=== PATIENT | male | born 1975 | race Native Hawaiian/Other Pacific Islander ===

== ENCOUNTER 2016-11-28 14:38 | Emergency (ER) | payer SELFPAY ==
[2016-11-28 14:55] VITALS: TEMP 97
[2016-11-28] MEDS ORDERED: predniSONE 20 MG TAB PO ONE (15:00)
[2016-11-28] MEDS ORDERED: KETOROLAC TROMETHAMINE INJ 30 MG/ML VIAL IM ONE (15:00)
[2016-11-28] MEDS ORDERED: CYCLOBENZAPRINE HCL 10 MG TAB PO ONE (15:00)
--- NOTE | 2016-11-28 15:40 | RAD ---
PROCEDURE: Lumbar Spine 5 Views Clinical History: pain l3-l5 after fall this am. Indication: Same as above Comparison: None . Technique: 5.0 views of the lumbar spine were done. Findings: There is no loss of vertebral body height. There is no evidence of spondylolisthesis or spondylolyses in the lumbosacral spine. There is a transitional L5 vertebra The intervertebral disc spaces are well-maintained. Vascular wall calcifications are seen in the iliac vasculature. Surgical sutures are seen in the right pelvic region There is no significant scoliotic curvature of the lumbar spine. The bone mineralization is normal for patient's age. The thoracolumbar and the lumbosacral junction are intact. The visualized portions of the bilateral sacroiliac joints are unremarkable. The paravertebral soft tissues are radiographically unremarkable. The posterior elements are normal. Impression: Negative for acute bony trauma involving the lumbar spine Location of Interpretation: Teleradiology Electronically signed by: Cal Galeas MD 11/28/2016 3:38 PM CDT Workstation: [id number]
--- NOTE | 2016-11-28 15:49 | ED.PDOC ---
History of Present Illness - General Chief Complaint: Back Pain or Injury Stated Complaint: lumbar back pain Time Seen by Provider: 11/28/16 14:41 Source: patient Exam Limitations: no limitations - History of Present Illness Initial Comments: the patient is a 41-year-old male presenting to the emergency room in police custody. Apparently the patient fell backwards and landed on his lower back on his porch this morning. He hurt his back and was speaking to the hospital when he got stopped by the police. The patient is in police custody. He is reporting early paraspinal pain from L2-L5 bilaterally. No radiculopathy or paresthesias. No sciatica. There is some muscle spasm present. No gross deformity. No laceration or abrasion. No bruising. Timing/Duration: 4-6 hours Severity: moderate Improving Factors: nothing Worsening Factors: movement Associated Symptoms: denies symptoms Allergies/Adverse Reactions: Allergies NO KNOWN ALLERGY Allergy (Verified 11/28/16 14:55) Home Medications: Ambulatory Orders Acetaminophen W/ Codeine [Tylenol W/ CODEINE #3] 1 ea PO Q4H PRN #12 08/01/15 Ibuprofen [Motrin Tab] 600 mg PO Q8H PRN #15 tab 08/01/15 Cyclobenzaprine HCl [Flexeril] 5 mg PO TID PRN #30 tab 11/28/16 predniSONE [Prednisone] 20 mg PO DAILY #5 tab 11/28/16 Review of Systems - Review of Systems Constitutional: States: no symptoms reported EENTM: States: no symptoms reported Respiratory: States: no symptoms reported Cardiology: States: no symptoms reported Gastrointestinal/Abdominal: States: no symptoms reported Genitourinary: States: no symptoms reported Musculoskeletal: States: back pain Skin: States: no symptoms reported Neurological: States: no symptoms reported Endocrine: States: no symptoms reported All other Systems: No Change from Baseline Past Medical History (General) - Patient Medical History Hx Stroke: No Hx Congestive Heart Failure: No Hx Diabetes: No Hx Cancer: No Hx Hepatitis C: No Hx MRSA: No Surgical History: other - Vaccination History Hx Tetanus, Diphtheria Vaccination: Yes Hx Influenza Vaccination: Yes Hx Pneumococcal Vaccination: Yes - Social History Hx Tobacco Use: No Hx Alcohol Use: Yes - occasional Hx Substance Use: No - Female History Patient : No Family Medical History - Family History Mother Family History: No Known Living Status: Still Living Physical Exam - Physical Exam General Appearance: Alert, Comfortable Eye Exam: bilateral normal Ears, Nose, Throat: hearing grossly normal, normal ENT inspection, normal pharynx Neck: full range of motion, supple, normal inspection Respiratory: chest non-tender, lungs clear, normal breath sounds, no respiratory distress, no accessory muscle use Cardiovascular/Chest: normal peripheral pulses, regular rate, rhythm, no edema Peripheral Pulses: radial,right: 2+, radial,left: 2+, dorsalis pedis,right: 2+, dorsalis pedis,left: 2+ Gastrointestinal/Abdominal: non tender, soft Rectal Exam: deferred Back Exam: no vertebral tenderness, CVA tenderness (R), CVA tenderness (L) Extremity: normal range of motion, non-tender, normal inspection, no pedal edema , normal capillary refill Neurologic: alert, normal mood/affect, oriented x 3 Skin Exam: normal color Comments: Vital Signs - 24 hr 11/28/16 14:38 Temperature 97 F L Pulse Rate [ 56 L pulse ox] Respiratory 20 Rate Blood Pressure 146/94 [Left Arm] O2 Sat by Pulse 94 L Oximetry Progress - Progress Progress: 11/28/16 15:49 the patient is a 41-year-old male presenting with low back pain from a fall this morning. The patient was given a dose of Toradol as well as dose of a muscle relaxer and prednisone. He will be written prescriptions for prednisone and muscle relaxer for as needed use. He does need to do some stretching exercises. A heat pad when available might prove of some use. X-rays of the lumbar spine show no evidence of any acute pathology. At this point in time the pain appears to be soft tissue only. ER warnings were given. He should follow-up with his primary care doctor next week. Departure - Departure Clinical Impression: Low back pain without sciatica Qualifiers: Chronicity: acute Back pain laterality: bilateral Qualified Code(s): M54.5 - Low back pain Disposition: Discharge to Home or Self Care Condition: Fair Departure Forms: ED Discharge - Pt. Copy, Patient Portal Self Enrollment Instructions: DI for Low Back Pain Diet: regular diet Activity: increase activity as tolerated Prescriptions: Cyclobenzaprine HCl [Flexeril] 5 mg PO TID PRN #30 tab PRN Reason: Muscle Spasms predniSONE [Prednisone] 20 mg PO DAILY #5 tab Home Medications: Ambulatory Orders Acetaminophen W/ Codeine [Tylenol W/ CODEINE #3] 1 ea PO Q4H PRN #12 08/01/15 Ibuprofen [Motrin Tab] 600 mg PO Q8H PRN #15 tab 08/01/15 Cyclobenzaprine HCl [Flexeril] 5 mg PO TID PRN #30 tab 11/28/16 predniSONE [Prednisone] 20 mg PO DAILY #5 tab 11/28/16 Additional Instructions: the patient is a 41-year-old male presenting with low back pain from a fall this morning. The patient was given a dose of Toradol as well as dose of a muscle relaxer and prednisone. He will be written prescriptions for prednisone and muscle relaxer for as needed use. He does need to do some stretching exercises. A heat pad when available might prove of some use. X-rays of the lumbar spine show no evidence of any acute pathology. At this point in time the pain appears to be soft tissue only. ER warnings were given. He should follow-up with his primary care doctor next week.
[2016-11-28 16:05] VITALS: BP 134/92; O2SAT 99
== END 2016-11-28 16:00 | disposition home or self-care (01) ==
LOC: ER 14:38
DX: M54.5 Low back pain (principal)
CPT/HCPCS: 72114; J1885; J7512

== ENCOUNTER 2018-11-10 05:30 | Day surgery (SDC) | payer BC ==
[2018-11-10] MEDS ORDERED: DEXAMETHASONE INJ 10 MG/ML VIAL ONE (07:00)
[2018-11-10] MEDS ORDERED: SODIUM CHLORIDE 0.9% 50 ML VIAL ONE (07:00)
[2018-11-10] MEDS ORDERED: PROPOFOL 200 MG/20 ML VIAL IV ONE (07:00)
[2018-11-10] MEDS ORDERED: LIDOCAINE 1% 10 ML VIAL INJ ONE (07:00)
[2018-11-10] MEDS ORDERED: GLYCOPYRROLATE 0.2 MG/ML VIAL ONE (07:00)
[2018-11-10] MEDS ORDERED: raNITIdine HCL INJ 25 MG/ML VIAL ONE (07:00)
[2018-11-10] MEDS ORDERED: ePHEDrine SULF 50 MG/ML ONE (07:00)
[2018-11-10] MEDS ORDERED: METOCLOPRAMIDE HCL INJ 10 MG/2 ML VIAL ONE (07:00)
[2018-11-10] MEDS ORDERED: KETOROLAC TROMETHAMINE INJ 30 MG/ML VIAL ONE (07:00)
[2018-11-10] MEDS ORDERED: SODIUM CHL 0.9% 100ML MINI-BAG 100 ML IVPB ONE (09:19)
[2018-11-10] MEDS ORDERED: ceFAZolin SODIUM 1 GM VIAL ONE (09:20)
[2018-11-10] MEDS: LACTATED RINGERS 1,000 ML ONE ×2 (09:40→12:52)
[2018-11-10] MEDS ORDERED: BUPIVACAINE 0.5% W/EPI 30 ML VIAL INJ ONE (10:41)
[2018-11-10] MEDS ORDERED: MIDAZOLAM INJ 2 MG/2 ML VIAL ONE ×2 (10:56→11:06)
[2018-11-10] MEDS ORDERED: KETAMINE HCL 50 MG/ML SYG IV ONE (10:56)
[2018-11-10] MEDS ORDERED: HYDROmorphone HCL INJ 2 MG/ML VIAL ONE (10:56)
[2018-11-10] MEDS ORDERED: ROCURONIUM BROMIDE 10 MG/ML VIAL ONE (10:57)
[2018-11-10] MEDS: HYDROmorphone HCL INJ 2 MG/ML VIAL ONE ×7 (12:38→13:58)
[2018-11-10] MEDS ORDERED: SUGAMMADEX SODIUM 200 MG/2 ML VIAL IV ONE (12:43)
--- NOTE | 2018-11-10 13:49 | OP ---
DATE OF PROCEDURE: 11/10/18 PREOPERATIVE DIAGNOSIS: 1. Symptomatic cholelithiasis. 1. Left inguinal hernia. POSTOPERATIVE DIAGNOSIS: 1. Symptomatic cholelithiasis. 2. Left inguinal hernia. PROCEDURE: 1. Laparoscopic cholecystectomy with intraoperative cholangiogram. 2. Repair of incarcerated left inguinal hernia with removal of 5 cm retroperitoneal tumor, Edmond type repair. SURGEON: Jorje Jackson MD. ANESTHESIA: General and local. FINDINGS: The gallbladder showed at least 2 moderately large multi-faceted stones. The cholangiogram showed normal anatomy without filling defect. The left groin had a small indirect sac that was very thin walled as well as a moderately large cord lipoma through the internal ring. Note, there was a small peritoneal defect that could not be repaired. It had a small amount of peritoneal fat in it that we reduced and then performed an online Edmond repair to avoid intraabdominal exposed Prolene. COMPLICATIONS: None. ESTIMATED BLOOD LOSS: Minimal. SPECIMEN: Gallbladder and left inguinal retroperitoneal tumor. PLAN: Discharge. INDICATION: As stated. PROCEDURE: General anesthesia was induced. The patient was prepped and draped in sterile fashion. Marcaine 0.5% with epinephrine was used all incision sites. The patient had a previous midline laparotomy, so a small thierry was made and the Veress needle was introduced on the right side of the abdomen inferior to where he had had a laparoscopic right inguinal hernia, anticipating this would be scar-free. It was insufflated. The Vis-A-Port was used and, indeed, this area of the abdomen was free. There were some adhesions of both omentum and small bowel to the left of midline, but we were able to place a 5 mm superior the umbilicus. Subxiphoid and right lateral ports were placed under direct visualization without difficulty . The gallbladder fundus was grasped and retracted superiorly and laterally. The infundibulum was grasped. The infundibular structures were dissected free. The duct and artery were clearly visualized through the triangle of Calot. A clip was placed on the proximal duct and ductotomy performed. The cholangiocatheter was introduced. The cholangiogram revealed the above normal findings. The catheter was removed. Three clips were placed on the distal duct. The duct was ligated and the artery triply ligated as was a small posterior branch. It looked like a duct of Luschka. The gallbladder was then dissected off the fossa totally and removed in the EndoCatch bag. The fossa was examined. It remained hemostatic. The clips were intact. There was no bleeding or bile leak. The subxiphoid fascia was then closed with 0 Vicryl using the suture passer. It was airtight and non- bleeding. The remaining trocars were removed. There was no bleeding from the trocar sites. The wounds were irrigated and closed with Monocryl and dressing applied. We then went down to the left groin that had been marked. An ilioinguinal nerve block was performed based on anatomic landmarks. Marcaine 05.% with epinephrine 3 cc were injected. The incision was made to subcutaneous tissue and taken down. The external oblique aponeurosis was identified. A small thierry was made. It was opened along its fibers while undermining with Metzenbaum. The nerve was identified and dissected out and spared. The cord was then isolated and felt to be a rather bulky cord and we identified the moderate sized retroperitoneal tumor coming to the internal ring. It was high ligated with Vicryl suture and then dissected out the proximal cord and found a small, thin sac. Upon dissection and reduction of this sac in the preperitoneal plane, I noticed what appeared to be some mesenteric fat. Indeed, it turned out to be and I could not identify the edges of the small peritoneal defect in order to repair it. For this reason, I did not want use my normal preperitoneal placement of the PHS mesh. The defect itself was quite small, but I did use an interrupted 2-0 Vicryl to close this defect somewhat medially of the cord without stricturing. We then cut off the internal portion of the PHS mesh and used the external as well as the tunneler for a similar type repair, securing it to the tubercle, wrapped around the cord, non-stricturing and securing at multiple places along the shelving edge, also securing the elevator at the internal ring and then superiorly along the transverse and laid out laterally underneath the external oblique. It fit well. The external oblique was closed with a running 2-0 Vicryl with care not to incorporate the nerve. One nerve that was in the cord, separate from the ilioinguinal we had dissected out before was sacrificed and ligated distally. At that point, all lap and instruments were correct. There was no significant bleeding. More local was placed in the external oblique. The wound was then closed in 2 additional layers. Dressings were applied. He tolerated the procedure. The patient was awakened and taken to Recovery to be discharged. #[id number] MTDD
[2018-11-10] MEDS ORDERED: diphenhydrAMINE HCL 50 MG/ML VIAL ONE (14:04)
[2018-11-10 15:19] VITALS: BP 156/77; TEMP 97.7; O2SAT 100
--- NOTE | 2018-11-11 09:08 | RAD ---
PROVIDED CLINICAL HISTORY/REASON FOR EXAM: IOC Findings/impression: One intraoperative fluoroscopic cholangiogram image. Dose: Not documented Time: Labeled as less than one hour Electronically signed by: Amrik Pandya MD 11/11/2018 9:06 AM CDT
== END 2018-11-10 15:15 | disposition home or self-care (01) ==
LOC: AMB 05:30
PROVIDERS: ATTEND Surgery
DX: K80.10 Calculus of gallbladder with chronic cholecystitis without obstruction (principal); K82.8 Other specified diseases of gallbladder; D17.6 Benign lipomatous neoplasm of spermatic cord; K40.31 Unilateral inguinal hernia, with obstruction, without gangrene, recurrent; Z90.49 Acquired absence of other specified parts of digestive tract; Z79.899 Other long term (current) drug therapy
CPT/HCPCS: 00790; 47563; 49521; 76000; A4216; J0690; J1100; J1170; J1200; J1885; J2250; J2765; J2780; J3490; J7050; J7120

== ENCOUNTER 2018-12-13 12:25 | Emergency (ER) | payer BC ==
[2018-12-13] MEDS ORDERED: ONDANSETRON ODT 8 MG TAB SL ONE (12:53)
[2018-12-13] MEDS ORDERED: SODIUM CHLORIDE 0.9% 1000ML 1,000 ML IVS ONE (12:53)
[2018-12-13] MEDS ORDERED: KCL 40 MEQ/WATER FOR INJ 100ML 40 MEQ in PREMIX BAG 1 BAG IVPB ONE (13:28)
[2018-12-13] MEDS ORDERED: KCL 40 MEQ/WATER FOR INJ 100ML 100 ML IVPB ONE (13:48)
[2018-12-13 13:59] VITALS: TEMP 97.8
--- NOTE | 2018-12-13 14:12 | RAD ---
EXAM DESCRIPTION: Abdomen Series CLINICAL HISTORY: 43 years Male, suspected bowel partial bowel obs 1 mo post op COMPARISON: None. FINDINGS: The cardiomediastinal silhouette is unremarkable. No airspace consolidation or pleural effusion. No free subdiaphragmatic gas or intra-abdominal air-fluid level. Cholecystectomy clips. Small amount of colonic stool and gas, no dilated small bowel loops. A suture line is present in the right side of the pelvis. No suspicious intra-abdominal calcification or mass, no concerning bone lesion. IMPRESSION: Postoperative changes without obstruction or other acute intra-abdominal abnormality. Electronically signed by: Marek Barlow MD 12/13/2018 2:11 PM CDT
--- NOTE | 2018-12-13 14:53 | CT ---
EXAM DESCRIPTION: Abdoment/Pelvis w/o Contrast CLINICAL HISTORY: abd distension, pain, nvd, 1mo post op hernia COMPARISON: May 01, 2013 TECHNIQUE: Noncontrast transaxial CT images of the abdomen and pelvis are obtained. This exam was performed according to our departmental dose-optimization program, which includes automated exposure control, adjustment of the mA and/or kV according to patient size and/or use of iterative reconstruction technique . FINDINGS: Visualized lung bases show no acute findings. Given the limitations of a noncontrast exam the liver, spleen, pancreas, and adrenal glands are unremarkable. Interval postsurgical changes from cholecystectomy mild fat stranding in the gallbladder fossa could represent scarring. No biliary tract obstruction. Abdominal vasculature is unremarkable. No nephrolithiasis. No ureteral calcification or obstruction. Urinary bladder is poorly distended but unremarkable. Moderate prostate calcifications. The appendix is not identified. Suture line associated with loop of small bowel in the right lower quadrant is stable from previous.. Stomach is poorly distended and unremarkable. No small bowel obstruction. Several small fat-containing ventral hernias are seen involving the mid abdominal wall above the umbilicus. Subcutaneous soft tissue fat stranding along the left inguinal region consistent with left inguinal hernia repair. No recurrent hernia. No pathologically enlarged abdominal or retroperitoneal lymphadenopathy. Mild groundglass attenuation in the mesentery of the central abdomen with less than 1 cm mesenteric lymph nodes similar to previous. Mild to moderate scattered diverticuli of the descending to sigmoid colon. Osseous structures show no aggressive bony lesions. Moderate bony hypertrophy and partial fusion of the superior right sacroiliac joint. IMPRESSION: Interval postsurgical changes from cholecystectomy and left inguinal hernia repair without collocating features. Stable multiple small fat-containing ventral hernias. No acute findings on CT of the abdomen and pelvis. Colon diverticulosis without CT evidence of diverticulitis. Electronically signed by: Cas Gutierrez MD 12/13/2018 2:51 PM CDT
[2018-12-13] MEDS ORDERED: ALUM & MAG HYDROX-SIMETHICONE 30 ML, LIDOCAINE VISCOUS 2% 15 ML PO ONE ×2 (15:30)
[2018-12-13] MEDS ORDERED: ALUM & MAG HYDROX-SIMETHICONE 30 ML UD ONE (15:40)
[2018-12-13] MEDS ORDERED: LIDOCAINE HCL 2% (MOUTH-THROAT) 15 ML UD ONE (15:40)
[2018-12-13] MEDS ORDERED: ACETAMINOPHEN-CAFF-BUTALBITAL 1 EA TAB PO ONE (16:16)
--- NOTE | 2018-12-13 16:43 | ED.PDOC ---
History of Present Illness - General Chief Complaint: Post Op Problems Stated Complaint: intolerant of PO intake x2 days Time Seen by Provider: 12/13/18 12:26 Source: patient Exam Limitations: no limitations - History of Present Illness Initial Comments: the patient is a 43-year-old male presenting to the emergency room secondary to abdominal pain of several days with several episodes of nausea and vomiting over the last 24 hours and some abdominal distention. his abdomen is distended but there is no definite fluid wave or ascites and bedside ultrasound here by me shows no definite ascites. He has been having bowel movements. he has in fact been having some mild diarrhea. No bilious vomiting. The worst of his abdominal pain is actually at the upper central trocar site from his gallbladder removal. The patient had his gallbladder taken out along with a left inguinal hernia repair about 3 weeks ago here with Dr. Jackson. No rebound or peritoneal signs. No definite palpable mass.he does have some pain at the upper central port site. I feel no evidence of any obvious masses and there is no skin changes to indicate infection. No dehiscence of the wound. Timing/Duration: 24 hours Severity: moderate Improving Factors: nothing Worsening Factors: nothing Associated Symptoms: loss of appetite, malaise, nausea/vomiting Allergies/Adverse Reactions: Allergies NO KNOWN ALLERGY Allergy (Verified 11/28/16 14:55) Home Medications: Ambulatory Orders Qqwwqvdmjinhr-Ivdz-Zrmwspnmci [Fioricet] 1 ea PO Q8H PRN #10 tab 12/13/18 Famotidine 20 mg PO DAILY #30 tab 12/13/18 Ondansetron Odt [Zofran ODT] 4 mg PO Q8HR PRN #5 tab 12/13/18 Sucralfate Tab [Carafate Tab] 1 gm PO QID #60 tab 12/13/18 Review of Systems - Review of Systems Constitutional: States: malaise EENTM: States: no symptoms reported Respiratory: States: no symptoms reported Cardiology: States: no symptoms reported Gastrointestinal/Abdominal: States: abdominal pain, constipation, diarrhea, nausea, vomiting Genitourinary: States: no symptoms reported Musculoskeletal: States: no symptoms reported Skin: States: no symptoms reported Neurological: States: no symptoms reported Endocrine: States: no symptoms reported All other Systems: No Change from Baseline Past Medical History (General) - Patient Medical History Hx Seizures: No Hx Stroke: No Hx Asthma: No Hx Congestive Heart Failure: No Hx Pacemaker: No Hx Hypertension: No Hx Diabetes: No Hx Cancer: No Hx Hepatitis C: No Hx MRSA: No Surgical History: colectomy - Vaccination History Hx Tetanus, Diphtheria Vaccination: Yes Hx Influenza Vaccination: Yes Hx Pneumococcal Vaccination: Yes - Social History Hx Tobacco Use: No Hx Alcohol Use: Yes - occasional Hx Substance Use: No - Female History Patient : No Family Medical History - Family History Mother Family History: No Known Living Status: Still Living Physical Exam - Physical Exam General Appearance: Alert, Anxious Eye Exam: bilateral normal Ears, Nose, Throat: hearing grossly normal, normal pharynx Neck: non-tender, supple Respiratory: lungs clear, normal breath sounds, no respiratory distress, no accessory muscle use Cardiovascular/Chest: normal peripheral pulses, regular rate, rhythm, no edema Peripheral Pulses: radial,right: 2+, radial,left: 2+, dorsalis pedis,right: 2+, dorsalis pedis,left: 2+ Gastrointestinal/Abdominal: other - see history of present illness. 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, alert, normal mood/affect - e has mildly anxious, oriented x 3 Skin Exam: normal color Comments: Vital Signs - 24 hr 12/13/18 12/13/18 12/13/18 12:32 13:30 13:59 Temperature 97.1 F L 97.8 F Pulse Rate [ 60 65 60 left brachial] Respiratory 20 20 20 Rate Blood Pressure 152/88 133/82 133/80 [left brachial] O2 Sat by Pulse 99 99 100 Oximetry 12/13/18 15:00 Temperature Pulse Rate [ 54 L left brachial] Respiratory 20 Rate Blood Pressure 129/82 [left brachial] O2 Sat by Pulse 100 Oximetry Progress - Progress Progress: 12/13/18 16:47 the patient's a 43-year-old male presenting to the emergency room secondary to abdominal pain approximately 3 weeks after having had a left inguinal hernia repair and gallbladder removal here with Dr. Jackson. The patient has had a day or 2 of vomiting as well. He has been having some mild diarrhea. Laboratory work is reassuring. CT scan of the abdomen and pelvis as well is reassuring. he needs to avoid getting constipated and I would recommend a dose of milk of magnesia once daily for the next 2 days. He also needs to increase his activity level. He does need to increase aerobic exercise. I'm going to place him on Pepcid and Carafate for the next couple of weeks for gastritis that may be contributing to his symptoms and he will also be written for Zofran for as needed use to control any nausea or vomiting. I do want him to follow back up with his general surgeon towards the end of this week for repeat evaluation. ER warnings were given for any obvious worsening. The patient was also given a dose of potassium here as it was mildly low. He was also given a liter of IV fluids. [email or web address] adame [id number] - Results/Orders Results/Orders: acute abdominal series shows no definite acute pathology. CT scan of abdomen and pelvis showed no evidence of any obstruction. No evidence of any recurrent left inguinal hernia. There is a possible very small hernia at the upper central port site. There also appears to be a very tiny hernia just slightly above the umbilicus. These do not contain any bowel. chronic findings otherwise. See report for details. Laboratory Results - last 24 hr 12/13/18 12/13/18 12/13/18 13:00 13:00 13:00 WBC 4.5 L RBC 4.75 Hgb 13.9 L Hct 40.5 L MCV 85.3 MCH 29.2 MCHC 34.2 RDW 13.3 Plt Count 248 MPV 7.6 Absolute Neuts (auto) 2.60 Absolute Lymphs (auto) 1.40 Absolute Monos (auto) 0.30 Absolute Eos (auto) 0.10 Absolute Basos (auto) 0.00 Neutrophils % 58.1 Lymphocytes % 31.5 Monocytes % 7.3 Eosinophils % 2.1 Basophils % 1.0 Sodium 137 Potassium 3.2 L Chloride 102 Carbon Dioxide 25 Anion Gap 13.2 BUN 10 Creatinine 0.84 BUN/Creatinine Ratio 11.9 Random Glucose 145 H Serum Osmolality 275.4 Lactic Acid 2.0 Calcium 9.3 Magnesium 1.9 Total Bilirubin 0.7 AST 21 ALT 22 Alkaline Phosphatase 98 Creatine Kinase 92 CK-MB (CK-2) 1.3 CK-MB (CK-2) % Not Reportable Troponin I < 0.02 Serum Total Protein 7.1 Albumin 3.9 Globulin 3.2 Albumin/Globulin Ratio 1.2 Amylase 59 Lipase 36 Urine Color Urine Appearance Urine pH Ur Specific [place] Urine Protein Urine Glucose (UA) Urine Ketones Urine Blood Urine Nitrite Urine Bilirubin Urine Urobilinogen Ur Leukocyte Esterase Urine RBC Urine WBC Ur Epithelial Cells Urine Bacteria 12/13/18 13:50 WBC RBC Hgb Hct MCV MCH MCHC RDW Plt Count MPV Absolute Neuts (auto) Absolute Lymphs (auto) Absolute Monos (auto) Absolute Eos (auto) Absolute Basos (auto) Neutrophils % Lymphocytes % Monocytes % Eosinophils % Basophils % Sodium Potassium Chloride Carbon Dioxide Anion Gap BUN Creatinine BUN/Creatinine Ratio Random Glucose Serum Osmolality Lactic Acid Calcium Magnesium Total Bilirubin AST ALT Alkaline Phosphatase Creatine Kinase CK-MB (CK-2) CK-MB (CK-2) % Troponin I Serum Total Protein Albumin Globulin Albumin/Globulin Ratio Amylase Lipase Urine Color Yellow Urine Appearance Clear Urine pH 6.5 Ur Specific [place] 1.015 Urine Protein Negative Urine Glucose (UA) Negative Urine Ketones Negative Urine Blood Negative Urine Nitrite Negative Urine Bilirubin Negative Urine Urobilinogen 0.2 Ur Leukocyte Esterase Negative Urine RBC 0 Urine WBC 0-1 Ur Epithelial Cells 0 Urine Bacteria 0 Departure - Departure Clinical Impression: Postoperative abdominal pain, Hypokalemia Gastritis Qualifiers: Gastritis type: unspecified gastritis Chronicity: acute Gastritis bleeding: without bleeding Qualified Code(s): K29.00 - Acute gastritis without bleeding Disposition: Discharge to Home or Self Care Condition: Fair Departure Forms: ED Discharge - Pt. Copy, Patient Portal Self Enrollment Instructions: DI for Postoperative Pain, Gastritis (DC), Hypokalemia (DC) Diet: bland diet Activity: increase activity as tolerated Referrals: Shantell Kearney NP [Primary Care Provider] - 1-2 Weeks Prescriptions: Ondansetron Odt [Zofran ODT] 4 mg PO Q8HR PRN #5 tab PRN Reason: Nausea--Moderate Rethwqpnmdanw-Tufp-Zphvsixisi [Fioricet] 1 ea PO Q8H PRN #10 tab PRN Reason: Pain Famotidine 20 mg PO DAILY #30 tab Sucralfate Tab [Carafate Tab] 1 gm PO QID #60 tab Home Medications: Ambulatory Orders Rhqsgyvjqpicq-Zpqd-Iyzpzjaupj [Fioricet] 1 ea PO Q8H PRN #10 tab 12/13/18 Famotidine 20 mg PO DAILY #30 tab 12/13/18 Ondansetron Odt [Zofran ODT] 4 mg PO Q8HR PRN #5 tab 12/13/18 Sucralfate Tab [Carafate Tab] 1 gm PO QID #60 tab 12/13/18 Additional Instructions: the patient's a 43-year-old male presenting to the emergency room secondary to abdominal pain approximately 3 weeks after having had a left inguinal hernia repair and gallbladder removal here with Dr. Jackson. The patient has had a day or 2 of vomiting as well. He has been having some mild diarrhea. Laboratory work is reassuring. CT scan of the abdomen and pelvis as well is reassuring. he needs to avoid getting constipated and I would recommend a dose of milk of magnesia once daily for the next 2 days. He also needs to increase his activity level. He does need to increase aerobic exercise. I'm going to place him on Pepcid and Carafate for the next couple of weeks for gastritis that may be contributing to his symptoms and he will also be written for Zofran for as needed use to control any nausea or vomiting. I do want him to follow back up with his general surgeon towards the end of this week for repeat evaluation. ER warnings were given for any obvious worsening. The patient was also given a dose of potassium here as it was mildly low. He was also given a liter of IV fluids.
[2018-12-13 17:05] VITALS: BP 135/92; O2SAT 95
== END 2018-12-13 17:11 | disposition home or self-care (01) ==
LOC: ER 12:25
DX: K29.00 Acute gastritis without bleeding (principal); E87.6 Hypokalemia; G89.18 Other acute postprocedural pain; R10.10 Upper abdominal pain, unspecified; Z90.49 Acquired absence of other specified parts of digestive tract
CPT/HCPCS: 36415; 74019; 74176; 80053; 81001; 82150; 82550; 82553; 83605; 83690; 83735; 84484; 85025; J3480; J7030